=== PATIENT | female | born 1980 | race Caucasian/White ===

== ENCOUNTER → 2021-06-01 | Outpatient (CLI) | payer SELFPAY ==
[~2021-06-01] MED LIST: MOTRIN 600600 MG/TAB PO; PERCOCET 325 MG1 TA2 PO; PRENATAL1 TA1 PO; SYNTHROID0.125 MG/T PO
== END ==
LOC: MC.RAD 04-12 14:15
DX: Z12.31 Encounter for screening mammogram for malignant neoplasm of breast (principal); R92.0 Mammographic microcalcification found on diagnostic imaging of breast

== ENCOUNTER → 2021-06-06 | Outpatient (CLI) | payer SELFPAY | LOC: MC.RAD 11:25 | DX: R92.0 Mammographic microcalcification found on diagnostic imaging of breast (principal) ==

== ENCOUNTER → 2022-08-08 | Outpatient (CLI) | payer OTHER | LOC: MC.RAD 08:09 | DX: Z12.31 Encounter for screening mammogram for malignant neoplasm of breast (principal) ==

== ENCOUNTER → 2023-09-20 | Outpatient (CLI) | payer SELFPAY | LOC: MC.RAD 09:28 | DX: Z12.31 Encounter for screening mammogram for malignant neoplasm of breast (principal) ==